=== PATIENT | female | born 1985 | race Caucasian/White ===

== ENCOUNTER 2024-07-11 05:17 | Day surgery (SDC) | payer MEDICAID ==
[~2024-07-11] VITALS: Ht 165.2 cm; Wt 117.2 kg
[2024-07-11] VITALS (14 sets, daily range): BP systolic 103–134; BP diastolic 60–86; PULSE 61–92; TEMP 97.4–98.8
[~2024-07-11 05:17] MED LIST: LR 1,000 ML IV SCH; Meclizine 25 MG TAB PO SCH; Scopolamine 1 MG Delivered 3-Day PATCH TD SCH
[2024-07-11] MEDS ORDERED: SYNTHROID0.088 MG/T PO (05:58)
[2024-07-11] MEDS ORDERED: ZESTRIL2.5 MG PO (05:58)
[2024-07-11] MEDS ORDERED: DEMADEX 20MG20 M1 PO (05:59)
[2024-07-11] MEDS ORDERED: Succinylcholine PF 200 MG/10 ML SYRINGE IV ONE (06:49)
[2024-07-11] MEDS ORDERED: Lidocaine PF 2% (20 MG/ML) 5 ML VIAL ONE ×2 (06:49→06:56)
[2024-07-11] MEDS ORDERED: Rocuronium 50 MG/5 ML Multi-Dose VIAL ONE (06:50)
[2024-07-11] MEDS ORDERED: fentaNYL 50 MCG/ML 2 ML VIAL ONE ×2 (06:52→07:59)
[2024-07-11] MEDS ORDERED: Ondansetron 4 MG/2 ML VIAL IV PRN ×2 (07:15→08:15)
[2024-07-11] MEDS ORDERED: HYDROmorphone 0.5 MG/0.5 ML SYRINGE IV PRN (07:15)
[2024-07-11] MEDS ORDERED: Naloxone 0.4 MG/ML VIAL IV PRN (07:15)
[2024-07-11] MEDS ORDERED: oxyCODONE 5 MG TAB PO PRN (07:15)
[2024-07-11] MEDS ORDERED: D5NS & 20 mEq KCl 1,000 ML IV SCH (07:30)
[2024-07-11] MEDS ORDERED: NS 10 ML IV ONE (08:00)
[2024-07-11] MEDS ORDERED: hydrALAZINE 20 MG/ML 1 ML VIAL IV PRN (08:15)
[2024-07-11] MEDS ORDERED: fentaNYL 50 MCG/ML 1 ML SYRINGE/VIAL [PACU/SDC ONLY] IV PRN (08:15)
[2024-07-11] MEDS ORDERED: HYDROmorphone 1 MG/1 ML SYRINGE [PACU/SDC ONLY] IV PRN (08:15)
[2024-07-11] MEDS ORDERED: droPERidol 2.5 MG/ML 2 ML VIAL IV PRN (08:15)
[2024-07-11] MEDS ORDERED: Acetaminophen 500 MG TAB PO SCH (08:15)
[2024-07-11] MEDS ORDERED: Meperidine 50 MG/ML 1 ML VIAL IV PRN (08:15)
[2024-07-11] MEDS ORDERED: Torsemide 20 MG TAB PO SCH (09:00)
[2024-07-11] MEDS ORDERED: Lisinopril 5 MG TAB PO SCH (09:00)
[2024-07-11] MEDS ORDERED: diphenhydrAMINE 50 MG/ML 1 ML VIAL IV ONE (10:30)
--- NOTE | 2024-07-11 11:09 | NUR ---
PATIENT ARRIVED TO FLOOR AT 1055 FROM PACU. 4 INSCISION SITES W/ BANDAIDS CDI. 1 SITE FOR LISA DRAIN CDI, DRIANINGAGE THIN AND RED/PINK. PATIENT SLEEPING RR16. VSS. SISITER AT BEDSIDE.
[2024-07-11] MEDS ORDERED: ROXICODONE 55 MG/TAB PO (14:59)
--- NOTE | 2024-07-11 19:18 | NUR ---
BEDSIDE SHIFT REPORT RECIEVED AT THIS TIME.
--- NOTE | 2024-07-11 21:10 | NUR ---
SHIFT ASSESSMENT COMPLETED AT THIS TIME. PT A&OX4. PT RESTING IN BED AT THIS TIME. PT REPORTS 3/10 PAIN LOCATED IN THE ABDOMEN BUT DENIES SCHEDULED PAIN MEDICATION AT THIS TIME. PT RESTING IN BED UPON ENTRANCE. PT DENIES NAUSEA ND SOB. PT ASSISTED TO THE BATHROOM. IVF INFUSING IN RIGHT AC. CALL LIGHT WIHTIN REACH. NO FURTHER NEEDS AT THIS TIME.
[2024-07-12] VITALS (7 sets, daily range): BP systolic 117–127; BP diastolic 77–84; PULSE 66–74; TEMP 98.1–98.4
--- NOTE | 2024-07-12 00:19 | NUR ---
report recieved from [facility]. pt resting comfortably in bed, unlabored breathing. call light in reach. fluids infusing into right AC.
--- NOTE | 2024-07-12 02:48 | NUR ---
pt ambulating in the halls. reports increased pain to a 5 in her shoulder after walking, scheduled tylenol given. denies nausea. no other needs at this time.
[2024-07-12 06:50] LABS: CALCIUM 8.4 mg/dL (8.4-10.2); CREATININE, serum 2.1 mg/dL (0.57-1.11); POTASSIUM 4.1 mEq/L (3.5-4.5)
--- NOTE | 2024-07-12 08:55 | NUR ---
SW met with patient to complete initial assessment for discharge planning. Patient verifies that she lives in [place] with her , their 4 children and her sister and nephew. 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 Kiara lists her sister Tasneem Faith ([phone]) as her contact. Patient sees Dr. Dupree as her PCP and uses [facility] pharmacy without difficulty. Patient denies having any DME and denies having DPOA completed. Patient does ask to complete a DPOA today prior to discharge. Discharge plan: Home
--- NOTE | 2024-07-12 10:29 | NUR ---
SHIFT ASSESSMENT COMPLETE. VSS. PATIENT RESTING IN BED AWAKE. CLEARS TRAY ORDERED. ALL MORNING MEDS GIVEN ORDERED. ADVISED PATIENT THAT SHE WILL NEED TO GET MORE TODAY AND WALK TO HELP WITH PASSING GAS. PATIENT EPRESSES UNDERSTANDING. PATIENT STATES NO OTHER NEEDS AT THIS TIME. CALL LIGHT IN REACH
--- NOTE | 2024-07-12 15:20 | NUR ---
D: Branch Store Manager stopped by room on rounds. A: Pt was resting and content. Pt has no needs right now. P: Branch Store Manager informed pt that if she needed anything from the sap sd analyst area to let her nurse know. Branch Store Manager will follow up as needed.
--- NOTE | 2024-07-12 15:51 | NUR ---
faith drain removed, 25ml out in drain. patient tolerated well. guaze and tegaderm placed over drain incision site.
[2024-07-12] MEDS ORDERED: ZOFRAN 4MG T4 MG/TAB PO (16:53)
== END 2024-07-12 17:21 | disposition home or self-care (01) ==
LOC: SDCO 05:17 → SURG 10:55 → SDCO 07-12 17:21
PROVIDERS: Surgery
DX: E66.01 Morbid (severe) obesity due to excess calories (principal); Q61.3 Polycystic kidney, unspecified; Z87.891 Personal history of nicotine dependence; Z68.41 Body mass index [BMI] 40.0-44.9, adult
CPT/HCPCS: OP; J0690; J0780; J1171; J1200; J2405; J2704; J3010; J3480; J7120